=== PATIENT | female | born 1995 | race Caucasian/White ===

== ENCOUNTER 2020-03-30 10:05 | Emergency (ER) | payer MEDICAID ==
[~2020-03-30] VITALS: Ht 154.9 cm; Wt 110.0 kg
[2020-03-30 10:13] VITALS: BP 152/93
[2020-03-30] MEDS ORDERED: METHYLPREDNISOLONE SOD SUCC 125 MG/2 ML VIAL IM STA (10:53)
[2020-03-30] MEDS ORDERED: ALBUTEROL 6.7GM HFA INHALER ORI ONE (11:00)
== END 2020-03-30 11:24 | disposition home or self-care (01) ==
LOC: ER 10:31
DX: J45.901 Unspecified asthma with (acute) exacerbation (principal)
CPT/HCPCS: 94640; 96372; 99283; J2930; Z7610

== ENCOUNTER 2020-05-16 22:35 | Emergency (ER) | payer MEDICAID, OTHER ==
[~2020-05-16] VITALS: Ht 152.4 cm; Wt 82.0 kg
[2020-05-16] MEDS ORDERED: ALBUTEROL (0.083%) 2.5MG/3ML NEB HHN STA (23:11)
[2020-05-16] MEDS ORDERED: IPRATROPIUM BROMIDE (0.02%) 0.5MG/2.5ML NEB HHN STA (23:11)
[2020-05-16] MEDS ORDERED: PREDNISONE 20MG TABLET PO STA (23:11)
[2020-05-16] MEDS ORDERED: MAGNESIUM 2 G PREMIX 50 ML IV ONE (23:15)
[2020-05-17 02:15] VITALS: BP 145/88
== END 2020-05-17 02:16 | disposition home or self-care (01) ==
LOC: ER 22:35
DX: J45.901 Unspecified asthma with (acute) exacerbation (principal)
CPT/HCPCS: 93005; 94640; 96365; 99283; J3475; J7512; Z7610